=== PATIENT | female | born 1990 | race Caucasian/White ===

== ENCOUNTER 2022-01-26 15:12 | Outpatient (CLI) | payer OTHER, SELFPAY ==
[2022-01-26 19:31] LABS: Albumin* 4.8 g/dL (3.3-5.0)
[2022-01-26 19:34] LABS: Aspartate Amino Transferase* 31 U/L (12-35); Bilirubin Direct* 0.2 mg/dL (0.0-0.5); Bilirubin Total* 0.4 mg/dL (0.1-1.5); Cholesterol* 171 mg/dL (90-199); Total Protein* 7.5 g/dL (6.0-8.3); Triglycerides* 87 mg/dL (40-149)
[2022-01-26 19:35] LABS: Alanine Aminotransferase* 27 U/L (4-35); Alkaline Phosphatase* 76 U/L (40-150); HDL Cholesterol* 57 mg/dL (>=50); LDL Cholesterol Calculated 97 mg/dL (<100)
== END 2022-01-26 15:13 | disposition home or self-care (01) ==
PROVIDERS: PCP Family Medicine; Visit Provider Family Medicine
DX: Z01.419 Encounter for gynecological examination (general) (routine) without abnormal findings (principal); E03.9 Hypothyroidism, unspecified; D62 Acute posthemorrhagic anemia; R79.89 Other specified abnormal findings of blood chemistry; Z13.6 Encounter for screening for cardiovascular disorders
CPT/HCPCS: 80061; 80076; 84443

== ENCOUNTER 2022-07-23 15:53 | Outpatient (CLI) | payer OTHER, SELFPAY | END 2022-07-23 15:54 | disposition home or self-care (01) | PROVIDERS: PCP Family Medicine; Visit Provider Family Medicine | DX: R53.83 Other fatigue (principal); E03.9 Hypothyroidism, unspecified; D62 Acute posthemorrhagic anemia; R79.89 Other specified abnormal findings of blood chemistry; R42 Dizziness and giddiness; F41.1 Generalized anxiety disorder | CPT/HCPCS: 80053; 84443 ==

== ENCOUNTER 2023-02-05 07:33 | Outpatient (CLI) | payer BC, SELFPAY | END 2023-02-05 07:34 | disposition home or self-care (01) | LOC: NFLDREF 02-09 12:49 | PROVIDERS: PCP Family Medicine; Referring Provider Family Medicine; Visit Provider Family Medicine | DX: E03.9 Hypothyroidism, unspecified (principal) | CPT/HCPCS: 84443 ==

== ENCOUNTER 2023-03-16 10:08 | Day surgery (SDC) | payer BC, SELFPAY ==
[2023-03-16 10:33] VITALS: BP 109/72; PULSE 67; RESP 16; TEMP 37.4; O2SAT 100
[2023-03-16 10:35] VITALS: BMI 21.6
[2023-03-16] MEDS: LACTATED RINGERS 1000 ML 1,000 ML 100 ML IV ×2 (10:40→11:34)
--- NOTE | 2023-03-16 11:17 | P.GSOP_ITS ---
Operative Note Pre-op diagnosis: 1. Enlarging left back mass. Post-op diagnosis: Same Type of Procedure: 1. Excision of left mid back mass. Indications: 32-year-old female was seen in clinic for evaluation of an enlarging left back mass. Patient initially noticed this mass 6 years ago when she was . The mass has been slowly increasing in size. Patient has discomfort when she le ans on the chair or lays down on her back during exercises. On clinical exam in the left mid back there is a 5 cm in diameter soft tissue mass that is fairly mobile. There is no overlying erythema. This is suspicious for a lipoma. Given the enlarging nature of this mass and patient's physical exam, I recommended to proceed with excision of this mass in the operating room. The procedure was discussed in detail. The risks associated procedure including infection, bleeding, seroma, and mass recurrence were all discussed with the patient, she agreed to proceed. Procedure Description: After discussing the risks and benefits of the procedure, the patient signed informed consent.? The operative site was marked and the patient was brought to the operating room and placed on the operating table in the right lateral decubitus position.? Care was taken to pad the patient's pressure points.?? The patient was then sedated by anesthesia.?? The operative site was then prepped and draped in the usual sterile fashion.? A time-out was then performed. Local anesthetic was injected at the surgical site. The surgical site was several cm inferior to the left mid back mass. A horizontal skin incision was made in the left mid back. Dermis was divided with cautery. I then developed a subcutaneous skin flap superiorly to reach the superior left mid back mass. Subcutaneous mass was reached and divided circumferentially with cautery. The mass was removed and had an appearance of lipoma. This was sent to pathology. The mass was measuring 8.5 x 5 cm. Hemostasis was achieved with cautery. The dermis of the space where the mass used to be was then reapproximated to the subcutaneous fat and muscle fascia with interrupted 2-0 Vicryl sutures. The surgical incision was then closed in layers with interrupted 3-0 Vicryl sutures. The skin of surgical incision was then closed with a running 4-0 Monocryl stitch. Steri-Strips and sterile pressure dressings were placed over the surgical incision and over the area where the mass used to be. ? The patient was then woken and transported to the recovery area in stable condition. ? The patient tolerated the procedure well. Findings: Lipoma. Anesthesia: MAC and local Surgeon: Vanessa Rg MD Estimated blood loss (mL): 2 Additional Specimen Information: 1. Left back mass. Condition: stable Disposition: same day Date of procedure: 03/16/23
--- NOTE | 2023-03-16 11:17 | W.PM.H&PU ---
History & Physical Update History & Physical Update H&P Reviewed and patient assessed: No changes noted
[2023-03-16] MEDS: CEFAZOLIN 2 GM INJ IVP (11:26)
[2023-03-16] MEDS: BUPIVACAINE 0.25 %/EPI 1:200K 30 ml 11 ML INJECTION (11:33)
[2023-03-16] MEDS: LIDOCAINE 1 % PF 30 ML 11 ML INJECTION (11:33)
--- NOTE | 2023-03-16 11:33 | SUR.OPER ---
PATIENT QUESTIONS ANSWERED SATISFACTORILY PREOPERATIVELY. PATIENT BROUGHT TO OR #2 PER CART. Patient positioned supine then lateral right on OR #2 bed. The perioperative team supported arms bilaterally on arm boards. Final approval of positioning by surgeon.
--- NOTE | 2023-03-16 11:40 | W.ANESCHARGE ---
Anesthesia Charges Start Date/Time Anesthesia Start Date: 03/16/23 Anesthesia Start Time: 11:21 Stop Date/Time Anesthesia Stop Date: 03/16/23 Anesthesia Stop Time: 12:13
[2023-03-16 12:09] VITALS: BP 99/53; PULSE 81; RESP 16; TEMP 36.6; O2SAT 98
--- NOTE | 2023-03-16 12:14 | W.ANESCHARGE ---
Anesthesia Charges Start Date/Time Anesthesia Start Date: 03/16/23 Anesthesia Start Time: 11:21 Stop Date/Time Anesthesia Stop Date: 03/16/23 Anesthesia Stop Time: 12:13
[2023-03-16 12:15] VITALS: BP 99/52; PULSE 69; RESP 16; O2SAT 98
[2023-03-16 12:30] VITALS: BP 96/52; PULSE 62; RESP 16; O2SAT 97
== END 2023-03-16 12:53 | disposition home or self-care (01) ==
PROVIDERS: PCP Family Medicine; Visit Provider Surgery
PROC: (CPT 21931; principal; 2023-03-16 11:30)
DX: D17.1 Benign lipomatous neoplasm of skin and subcutaneous tissue of trunk (principal)
CPT/HCPCS: 21931; 00300; 88305; J0690; J2001; J2250; J2704; J3010; J7120

== ENCOUNTER 2024-02-28 16:00 | Outpatient (CLI) | payer BC, SELFPAY ==
--- OUTSIDE RECORDS SUMMARY | 2024-03-01 11:19 | XMS_ITS | Referral Summary ---
Author Organization [facility] Address [address] [place] [address]. [place] [address] Care Team Providers Care Product Operations Associate Name Role Phone Jessee Frazier MD Primary Care Provider [phone] Allergies No known active allergies Medications levothyroxine (SYNTHROID/LEVOT HROID) 88 MCG tablet Take 88 mcg by mouth daily 07/15/2020 Active Active Problems Patient Care Coordination No te Formatting of this note is d ifferent from the original. 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 GENETIC (and other) TESTING: declines PERTINENT MATERNAL CONDITIONS: 1) CARE PLAN: 1) Ultrasounds - q 4 weeks 2) Other Imaging - Echo 07/26 WNL 3) surveillance - 4) Relocation - 5) care with - [facility] 6) Labs - (look in media tab for results) Blood type: Ab screen: Rhogam: HepBSAg: Rubella: RPR: HIV: GCT: GBS: Covid test: 7) Vaccines: Tdap- Flu Vaccine- 7) care team and consultations - A) Genetic Counselor - B) Neonatology - C) Social Work - D) Peds Urology in 3rd tri- 09/11/20, DEVON Samuels DELIVERY PLAN: 1) Hospital - [facility] 2) Gestational age - 3) Route - 4) Notifications in labor - 5) Genetics/specimen collection for baby: BABY PLAN: 1) Baby to go to 2) Imaging to be done - A) immediately after - B) prior to hospital discharge - C) after discharge from the hospital - 3) Consults to be done - A) immediately after - B) prior to hospital discharge - C) after discharge from the hospital - Peds Urology 4 weeks after 4) Medications - REFERRING PROVIDER(S): 1) Primary OB Provider: [phone] [facility] 2) Other Sub-Specialty Provider: 3) Anticipated Pediatric Provider: DEMOGRAPHICS: Patient contact info: [facility] [address] (home) Telephone Information: Partner's name: Baby's name: No additional problems on file Social History Tobacco Use Types Packs/Day Years Used Date Smoking Tobacco: Never Assessed PHQ-2 Answer Date Recorded PHQ-2 Score 0 09/11/2020 Adolescent Education Answer Date Record ed Getting School Help Needed Not on file 01/23 Comments No Sex and Gender Information Value Date Recorded Sex Assigned at Not on file 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 Gender Identity Not on file Sexual Orientation Not on file Last Filed Vital Signs Vital Sign Reading Time Taken Comments Blood Pressure 124/79 09/11/2020 10:03 AM CDT Pulse 103 09/11/2020 10:03 AM CDT Temperature - - Respiratory Rate - - Oxygen Saturation - - Inhaled Oxygen Concentration - - Weight - - Height - - Body Mass Index - - Plan of Treatment Not on file Insurance [employer] [place] [facility] [place] Address: [facility] [address] [place] [address] Care Teams Product Operations Associate Relationship Specialty Start Date End Date Jessee Frazier MD PCP - General Family Medicine 07/28/20
--- OUTSIDE RECORDS SUMMARY | 2024-03-01 11:19 | XMS_ITS | Clinical Summary ---
Author Organization [facility] Address [place], [place] [address] Care Team Providers Care Coding Support Specialist Name Role Phone Unavailable Primary Care Provider Unavailabl e Social History Tobacco Use Types Packs/Day Years Used Date Smoking Tobacco: Never Assessed Social Connections Answer Date Recorded Frequency of Communication with Friends and Fami ly Not on file 05/03/2021 Financial Resource Strain Answer Date R ecorded Difficulty of Paying Living Expenses Not on file 05/03/2021 Difficulty of Paying Living Expenses Not on file 05/03/2021 Sex and Gender Information Value Date Recorded Sex Assigned at Not on file Gender Identity Not on file Sexual Orientation Not on file Plan of Treatment Health Maintenance Due Date Last Done Comments Tdap 2000 Depression screening for age 12+ 2001 HIV for age 15-65 2004 BMI (ht and wt on same day) for age 18+ 2007 Hepatitis C screening for ag e 18-79 2007 Tetanus booster 2009 Pap test for age 21-65 07/10/2022 0, 07/11/2019 COVID-19 vaccine series ( season) 2024 Influenza for age 9-49 01/02/2024 Pneumococcal series for age 6-64 Aged Out No longer eligible b ased on patient's age to complete this topic Procedures Procedure Name Priority Date/Time Associated Diagnosis Comments JUNIOR WEB DESIGNER THIN PREP PAP SCREEN IMAGED Routine 07/11/2019 7:30 PM CDT from Last 3 Months or Most Recently Relevant to Health Maintenance Results * JUNIOR WEB DESIGNER THIN PREP PAP SCREEN IMAGED (07/11/2019 7:30 PM CDT) Case Report Gynecologic Cytology Report ? Case: [id number] ? Authorizing Provider: ??Kathy Segovia PA-C ?Collected: ? 07/11/2019 1930 ? Ordering Location: ? [facility] ?Received: ?07/13/2019 0929 ? First Screen: ?Fletcher Khan ? Specimen: ?JUNIOR WEB DESIGNER ThinPrep Vial Screening, Cervical/Vaginal ? 07/19/2019 11:37 AM [facility] INTERPRETATION/ RESULT NEGATIVE FOR INTRAEPITHELIAL LESION OR MALIGNANCY (NIL) (none) 07/19/2019 11:37 AM [facility] IMEN ADEQUACY Satisfactory for evaluation Endocervical component present 07/19/2019 11:37 AM [facility] HPV REQUEST HPV and PAP 07/19/2019 11:37 AM T [facility] Last Pap Date 07/19/2019 11:37 AM [facility] Comment:2017 Last Pap Result NIL 0 11:37 AM T [facility] Menstrual Status 07/19/2019 11:37 AM [facility] Comment:IUD Additional Information 07/19/2019 11:37 AM T [facility] Comment: Interpreted at [facility] - [address], [place] [address] Automated Review Successful 07/19/2019 11:37 AM CDT [facility] Comment:Specimen processed s uccessfully by automated green chain operator device, [employer] Imaging System, [employer] ANCILLARY TESTING JUNIOR WEB DESIGNER HPV Ordered, Please see separate report 07/19/2019 11:37 AM CDT [facility] Note The pap test is a screening technique, not a diagnostic procedure. It is used primarily to screen for squamous cancers and precursor lesions. Published studies have shown that it is subject to both false negative and false positive results. The pap test should not be used as the sole means to diagnose or exclude pre-malignant and malignant lesions. 07/19/2019 11:37 AM CDT [facility] Other (Cervical/Vagina l) 07/11/2019 7:30 PM CDT 07/13/2019 9:29 AM CDT August Juliette NGUYEN PATHOLOGY/CYTOLOGY [facility] [address] [place] [address], from Last 3 Months or Most Recently Relevant to Health Maintenance
--- OUTSIDE RECORDS SUMMARY | 2024-03-01 11:19 | XMS_ITS | Clinical Summary ---
Author Organization [facility] Address [address] [place] [address]. [place] [address] Care Team Providers Care Slipper Maker Name Role Phone Jessee Frazier MD Primary Care Provider [phone] Allergies No known active allergies Medications levothyroxine (SYNTHROID/LEVOT HROID) 88 MCG tablet Take 88 mcg by mouth daily 07/15/2020 Active Active Problems Patient Care Coordination No te Formatting of this note is d ifferent from the original. 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 GENETIC (and other) TESTING: declines PERTINENT MATERNAL CONDITIONS: 1) CARE PLAN: 1) Ultrasounds - q 4 weeks 2) Other Imaging - Echo 07/26 WNL 3) surveillance - 4) Relocation - 5) care with - [facility] 6) Labs - (look in media tab for results) Blood type: Ab screen: Rhogam: HepBSAg: Rubella: RPR: HIV: GCT: GBS: Covid test: 7) Vaccines: Tdap- Flu Vaccine- 7) care team and consultations - A) Genetic Counselor - B) Neonatology - C) Social Work - D) Peds Urology in 3rd tri- 09/11/20, DEVON Samuels DELIVERY PLAN: 1) Hospital - [facility] 2) Gestational age - 3) Route - [...] - REFERRING PROVIDER(S): 1) Primary OB Provider: [phone] [facility] 2) Other Sub-Specialty Provider: 3) Anticipated Pediatric Provider: DEMOGRAPHICS: Patient contact info: [facility] Car[facility] [address] (home) Telephone Information: Partner's name: Baby's [...] on file 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
== END 2024-02-28 16:01 | disposition home or self-care (01) ==
PROVIDERS: PCP Family Medicine; Referring Provider Family Medicine; Visit Provider Family Medicine
DX: Z00.00 Encounter for general adult medical examination without abnormal findings (principal); E03.9 Hypothyroidism, unspecified; R79.89 Other specified abnormal findings of blood chemistry; F41.1 Generalized anxiety disorder; Z13.6 Encounter for screening for cardiovascular disorders
CPT/HCPCS: 80053; 80061; 84443

== ENCOUNTER 2025-03-02 07:39 | Outpatient (CLI) | payer OTHER, SELFPAY | END 2025-03-02 07:40 | disposition home or self-care (01) | LOC: NFLDREF 19:13 | PROVIDERS: PCP Family Medicine; Referring Provider Family Medicine; Visit Provider Family Medicine | DX: E03.9 Hypothyroidism, unspecified (principal) | CPT/HCPCS: 80053; 80061; 84439; 84443 ==

== ENCOUNTER 2025-03-05 09:38 | Outpatient (CLI) | payer OTHER, SELFPAY ==
[2025-03-07 19:12] LABS: HPV Source Cervical
[2025-03-08 16:35] LABS: Pap Test Digital Imaging Done
== END 2025-03-05 09:39 | disposition home or self-care (01) ==
PROVIDERS: PCP Family Medicine; Visit Provider Family Medicine
DX: Z12.4 Encounter for screening for malignant neoplasm of cervix (principal); Z11.51 Encounter for screening for human papillomavirus (HPV)
CPT/HCPCS: 87624; 87625; 88141; 88142; 88175